=== PATIENT | female | born 1940 | race Caucasian/White ===

== ENCOUNTER 2022-05-12 12:51 | Inpatient (IN) ==
[2022-05-12] MEDS ORDERED: Ipratropium/Albuterol Neb 3 ML IH ONE (13:15)
[2022-05-12] MEDS ORDERED: methylPREDNISolone 125 MG/2 ML VIAL IVP ONE (13:15)
[2022-05-12 13:26] LABS: Hematocrit 37.1 % (35.3-44.9); Hemoglobin 11.6 g/dL (11.5-15.4); Mean Corpuscular HGB Conc 31.3 g/dL (31.6-35.5); Mean Corpuscular Hemoglobin 30.4 pg (28.0-33.3); Mean Corpuscular Volume 97.1 fL (83.0-100.0); Platelet Count 222 K/mcL (140-400); Red Blood Count 3.82 M/mcL (3.82-4.97); Red Cell Distribution Width 12.6 % (11.5-14.5); White Blood Count 9.1 K/mcL (4.3-11.1)
[2022-05-12 13:27] LABS: Basophils % 0.3 %; Eosinophils # 0.1 K/mcL (0.0-0.6); Eosinophils % 1.1 %; Immature Granulocytes % 0.4 % (0-4); Lymphocytes # 1.2 K/mcL (0.6-4.6); Lymphocytes % 12.7 %; Monocytes # 0.8 K/mcL (0.0-1.3); Monocytes % 8.5 %
[2022-05-12 13:47] LABS: BUN/Creatinine Ratio 31 (6-26); Blood Urea Nitrogen 22 mg/dL (8-23); Calcium 9.7 mg/dL (8.6-10.3); Chloride 90 mEq/L (98-107); Glucose 170 mg/dL (70-105); Osmolality,Calculated 301 (280-300); Potassium 3.3 mEq/L (3.5-5.1); Sodium 142 mEq/L (136-145); Troponin I < 0.03 ng/mL (< 0.04); eGFR For African Americans > 60 (> 60); eGFR For Non-African Americans > 60 (> 60)
[2022-05-12 13:51] LABS: Carbon Dioxide > 45 mEq/L (23-29)
[2022-05-12 14:50] LABS: Influenza A PCR Negative (Negative); Influenza B PCR Negative (Negative); Resp. Syncytial Virus PCR Negative (Negative); SARS-CoV-2 by PCR (In House) Negative (Negative)
[2022-05-12 15:10] LABS: VBG HCO3 46 mEq/L (21-27); VBG PCO2 90 mmHg (41-51); VBG PH 7.32 pH Units (7.32-7.42); VBG PO2 164 mmHg (25-50)
[2022-05-12] MEDS ORDERED: Ondansetron 4 MG/2 ML VIAL IVP PRN (15:25)
[2022-05-12] MEDS ORDERED: Naloxone 0.4 MG/ML INJ IVP PRN (15:25)
[2022-05-12] MEDS ORDERED: Acetaminophen 325 MG TABLET PO PRN (15:25)
[2022-05-12] MEDS ORDERED: Ipratropium/Albuterol Neb 3 ML IH PRN (15:27)
[2022-05-12 15:56] LABS: ABG Base Excess 16 mEq/L (-2 to 3); ABG HCO3 44 mEq/L (21-27); ABG Oxygen Saturation 90 % (95-98); ABG PCO2 73 mmHg (35-45); ABG PH 7.39 pH Units (7.32-7.45); ABG PO2 62 mmHg (85-104); ABG TCO2 46 mEq/L (20-26); Blood Gas Modality NIV
[2022-05-12] MEDS: Azithromycin 500 MG in 0.9 % Sodium Chloride 250 ML IVPB SCH (16:29)
[2022-05-12] MEDS: methylPREDNISolone 125 MG/2 ML VIAL IVP SCH (17:39)
[2022-05-12 19:49] LABS: Prothrombin Time 11.2 Seconds (9.4-12.1)
[2022-05-13 00:04] LABS: Bilirubin,Urine Negative (Negative); Blood,Urine Negative (Negative); Clarity,Urine Clear (Clear); Color,Urine Yellow (Yellow); Glucose,Urine (UA) 200 mg/dL (Normal); Hyaline Casts,Urine Moderate per lpf (None Seen); Ketones,Urine Trace mg/dL (Negative); Leukocyte Esterase,Urine Trace (Negative); Mucus,Urine Few per lpf (None-Few); Nitrite,Urine Negative (Negative); PH,Urine 6.5 pH Units (5.0-8.0); Protein,Urine 30 mg/dL (Neg-Trace); RBC,Urine 0-3 per hpf (0-3); Specific Gravity,Urine 1.025 (1.010-1.025); Squamous Epithelial Cell,Urine Few per hpf (None-Few); Urobilinogen,Urine Normal (Normal)
[2022-05-13 00:11] LABS: Amphetamine Screen,Urine Negative ng/mL (Cutoff=1000); Barbiturate Screen,Urine Negative ng/mL (Cutoff=200); Benzodiazepines Screen,Urine Negative ng/mL (Cutoff=200); Cannabinoid Screen,Urine Negative ng/mL (Cutoff = 50); Cocaine Screen,Urine Negative ng/mL (Cutoff= 300); Opiate Screen,Urine Negative ng/mL (Cutoff=300); Phencyclidine Screen,Urine Negative ng/mL (Cutoff=25)
[2022-05-13 02:15] LABS: Basophils % 0.2 %; Hematocrit 34.2 % (35.3-44.9); Hemoglobin 10.7 g/dL (11.5-15.4); Immature Granulocytes % 0.8 % (0-4); Lymphocytes # 0.5 K/mcL (0.6-4.6); Lymphocytes % 8.2 %; Mean Corpuscular HGB Conc 31.3 g/dL (31.6-35.5); Mean Corpuscular Volume 95.8 fL (83.0-100.0); Mean Platelet Volume 11.3 fL (9.4-12.4); Monocytes # 0.1 K/mcL (0.0-1.3); Neutrophils # 5.6 K/mcL (1.6-8.9); Platelet Count 208 K/mcL (140-400); Red Blood Count 3.57 M/mcL (3.82-4.97); Red Cell Distribution Width 12.6 % (11.5-14.5); Segmented Neutrophils % 89.8 %; White Blood Count 6.3 K/mcL (4.3-11.1)
[2022-05-13 03:02] LABS: Alanine Aminotransferase 8 Units/L (7-52); Albumin 3.4 g/dL (3.5-5.7); Albumin/Globulin Ratio 1.3 (1.1-2.2); Alkaline Phosphatase 38 Units/L (34-104); Aspartate Amino Transferase 14 Units/L (13-39); BUN/Creatinine Ratio 43 (6-26); Bilirubin,Indirect 0.3 mg/dL (0.0-1.0); Bilirubin,Total 0.3 mg/dL (0.3-1.0); Blood Urea Nitrogen 28 mg/dL (8-23); Calcium 9.4 mg/dL (8.6-10.3); Carbon Dioxide 41 mEq/L (23-29); Chloride 97 mEq/L (98-107); Globulin 2.6 g/dL (2.4-3.5); Glucose 139 mg/dL (70-105); Magnesium 1.6 mg/dL (1.6-2.6); Osmolality,Calculated 304 (280-300); Phosphorous 3.1 mg/dL (2.7-4.5); Sodium 143 mEq/L (136-145); Thyroid Stimulating Hormone 0.274 mcIU/mL (0.340-5.600); eGFR For African Americans > 60 (> 60); eGFR For Non-African Americans > 60 (> 60)
[2022-05-13] MEDS: Levothyroxine 25 MCG TABLET PO SCH (06:06)
[2022-05-13] MEDS: methylPREDNISolone 125 MG/2 ML VIAL IVP SCH ×2 (06:06→17:38)
[2022-05-13] MEDS: PARoxetine 20 MG TABLET PO SCH (09:35)
[2022-05-13] MEDS: Azithromycin 500 MG in 0.9 % Sodium Chloride 250 ML IVPB SCH (09:35)
[2022-05-13] MEDS: Loratadine 10 MG TABLET PO SCH (09:35)
[2022-05-13] MEDS: *HR* Enoxaparin 30 MG/0.3 ML SYRINGE SQ SCH (09:36)
[2022-05-13] MEDS: Tiotropium 10 INH DOSE IH SCH (10:34)
[2022-05-13] MEDS: Melatonin 3 MG TABLET PO SCH (21:00)
[2022-05-14] MEDS: methylPREDNISolone 125 MG/2 ML VIAL IVP SCH (05:36)
[2022-05-14] MEDS: Levothyroxine 25 MCG TABLET PO SCH (05:36)
[2022-05-14] MEDS: Tiotropium 10 INH DOSE IH SCH (07:13)
[2022-05-14] MEDS: Loratadine 10 MG TABLET PO SCH (08:46)
[2022-05-14] MEDS: Azithromycin 500 MG in 0.9 % Sodium Chloride 250 ML IVPB SCH (08:47)
[2022-05-14] MEDS: PARoxetine 20 MG TABLET PO SCH (08:47)
[2022-05-14] MEDS: *HR* Enoxaparin 30 MG/0.3 ML SYRINGE SQ SCH (08:47)
[2022-05-14 10:05] LABS: BUN/Creatinine Ratio 45 (6-26); Blood Urea Nitrogen 37 mg/dL (8-23); Carbon Dioxide 40 mEq/L (23-29); Chloride 92 mEq/L (98-107); Glucose 298 mg/dL (70-105); Osmolality,Calculated 306 (280-300); Potassium 4.6 mEq/L (3.5-5.1); Sodium 138 mEq/L (136-145); eGFR For African Americans > 60 (> 60); eGFR For Non-African Americans > 60 (> 60)
[2022-05-14] MEDS ORDERED: predniSONE 20 MG TABLET PO SCH (12:00)
[2022-05-14 12:48] LABS: Estimated Average Glucose 123 mg/dl; Hemoglobin A1C 5.9 %
[2022-05-14] MEDS: Melatonin 3 MG TABLET PO SCH (20:38)
[2022-05-15 03:36] LABS: BUN/Creatinine Ratio 47 (6-26); Blood Urea Nitrogen 34 mg/dL (8-23); Calcium 8.9 mg/dL (8.6-10.3); Carbon Dioxide 41 mEq/L (23-29); Chloride 98 mEq/L (98-107); Glucose 78 mg/dL (70-105); Osmolality,Calculated 298 (280-300); Potassium 4.3 mEq/L (3.5-5.1); Sodium 141 mEq/L (136-145); eGFR For African Americans > 60 (> 60); eGFR For Non-African Americans > 60 (> 60)
[2022-05-15] MEDS: Levothyroxine 25 MCG TABLET PO SCH (06:34)
[2022-05-15] MEDS: Tiotropium 10 INH DOSE IH SCH (07:43)
[2022-05-15] MEDS: Azithromycin 250 MG TABLET PO SCH (08:38)
[2022-05-15] MEDS: PARoxetine 20 MG TABLET PO SCH (08:39)
[2022-05-15] MEDS: Loratadine 10 MG TABLET PO SCH (08:39)
[2022-05-15] MEDS: predniSONE 20 MG TABLET PO SCH ×2 (08:39→09:01)
[2022-05-15] MEDS: *HR* Enoxaparin 30 MG/0.3 ML SYRINGE SQ SCH (08:43)
[2022-05-15] MEDS: Melatonin 3 MG TABLET PO SCH (20:12)
[2022-05-16] MEDS: Levothyroxine 25 MCG TABLET PO SCH (05:57)
[2022-05-16] MEDS: Azithromycin 250 MG TABLET PO SCH (08:51)
[2022-05-16] MEDS: PARoxetine 20 MG TABLET PO SCH (08:51)
[2022-05-16] MEDS: predniSONE 20 MG TABLET PO SCH (08:51)
[2022-05-16] MEDS: Loratadine 10 MG TABLET PO SCH (08:51)
[2022-05-16] MEDS: *HR* Enoxaparin 30 MG/0.3 ML SYRINGE SQ SCH (08:52)
[2022-05-16] MEDS: Tiotropium 10 INH DOSE IH SCH (11:07)
[2022-05-16] MEDS: Melatonin 3 MG TABLET PO SCH (21:41)
[2022-05-17] MEDS: Levothyroxine 25 MCG TABLET PO SCH (05:38)
[2022-05-17] MEDS: Tiotropium 10 INH DOSE IH SCH (08:03)
[2022-05-17 08:21] LABS: Hematocrit 38.5 % (35.3-44.9); Hemoglobin 11.4 g/dL (11.5-15.4); Mean Corpuscular HGB Conc 29.6 g/dL (31.6-35.5); Mean Corpuscular Hemoglobin 30.4 pg (28.0-33.3); Platelet Count 251 K/mcL (140-400); Red Blood Count 3.75 M/mcL (3.82-4.97); Red Cell Distribution Width 12.9 % (11.5-14.5); White Blood Count 9.3 K/mcL (4.3-11.1)
[2022-05-17 08:23] LABS: Mean Corpuscular Volume 102.7 fL (83.0-100.0)
[2022-05-17 08:50] LABS: BUN/Creatinine Ratio 33 (6-26); Blood Urea Nitrogen 24 mg/dL (8-23); Carbon Dioxide 41 mEq/L (23-29); Chloride 92 mEq/L (98-107); Glucose 46 mg/dL (70-105); Osmolality,Calculated 299 (280-300); Potassium 3.7 mEq/L (3.5-5.1); Sodium 144 mEq/L (136-145); eGFR For African Americans > 60 (> 60); eGFR For Non-African Americans > 60 (> 60)
[2022-05-17] MEDS: Loratadine 10 MG TABLET PO SCH (09:07)
[2022-05-17] MEDS: predniSONE 20 MG TABLET PO SCH (09:07)
[2022-05-17] MEDS: PARoxetine 20 MG TABLET PO SCH (09:07)
[2022-05-17] MEDS: Azithromycin 250 MG TABLET PO SCH (09:08)
[2022-05-17] MEDS: *HR* Enoxaparin 30 MG/0.3 ML SYRINGE SQ SCH (09:09)
[2022-05-17] MEDS: Melatonin 3 MG TABLET PO SCH (21:05)
[2022-05-18 01:56] LABS: Hematocrit 33.2 % (35.3-44.9); Hemoglobin 10.5 g/dL (11.5-15.4); Mean Corpuscular HGB Conc 31.6 g/dL (31.6-35.5); Mean Corpuscular Hemoglobin 29.9 pg (28.0-33.3); Platelet Count 207 K/mcL (140-400); Red Blood Count 3.51 M/mcL (3.82-4.97); Red Cell Distribution Width 12.8 % (11.5-14.5); White Blood Count 10.5 K/mcL (4.3-11.1)
[2022-05-18 02:07] LABS: Mean Corpuscular Volume 94.6 fL (83.0-100.0)
[2022-05-18 02:23] LABS: BUN/Creatinine Ratio 38 (6-26); Blood Urea Nitrogen 26 mg/dL (8-23); Calcium 8.5 mg/dL (8.6-10.3); Carbon Dioxide 40 mEq/L (23-29); Chloride 97 mEq/L (98-107); Glucose 90 mg/dL (70-105); Osmolality,Calculated 294 (280-300); Sodium 140 mEq/L (136-145); eGFR For African Americans > 60 (> 60); eGFR For Non-African Americans > 60 (> 60)
[2022-05-18] MEDS: Levothyroxine 25 MCG TABLET PO SCH (06:22)
[2022-05-18] MEDS: Tiotropium 10 INH DOSE IH SCH (07:41)
[2022-05-18] MEDS: predniSONE 20 MG TABLET PO SCH (08:37)
[2022-05-18] MEDS: *HR* Enoxaparin 30 MG/0.3 ML SYRINGE SQ SCH (08:38)
[2022-05-18] MEDS: PARoxetine 20 MG TABLET PO SCH (08:38)
[2022-05-18] MEDS: Loratadine 10 MG TABLET PO SCH (08:38)
[2022-05-18] MEDS: Melatonin 3 MG TABLET PO SCH (20:36)
[2022-05-19 01:38] LABS: Hematocrit 32.3 % (35.3-44.9); Hemoglobin 10.3 g/dL (11.5-15.4); Mean Corpuscular HGB Conc 31.9 g/dL (31.6-35.5); Mean Corpuscular Hemoglobin 30.6 pg (28.0-33.3); Mean Corpuscular Volume 95.8 fL (83.0-100.0); Mean Platelet Volume 11.4 fL (9.4-12.4); Platelet Count 219 K/mcL (140-400); Red Blood Count 3.37 M/mcL (3.82-4.97); Red Cell Distribution Width 12.7 % (11.5-14.5); White Blood Count 9.8 K/mcL (4.3-11.1)
[2022-05-19 02:01] LABS: BUN/Creatinine Ratio 41 (6-26); Blood Urea Nitrogen 28 mg/dL (8-23); Calcium 8.8 mg/dL (8.6-10.3); Carbon Dioxide 44 mEq/L (23-29); Chloride 93 mEq/L (98-107); Glucose 94 mg/dL (70-105); Osmolality,Calculated 293 (280-300); Potassium 4.6 mEq/L (3.5-5.1); Sodium 139 mEq/L (136-145); eGFR For African Americans > 60 (> 60); eGFR For Non-African Americans > 60 (> 60)
[2022-05-19] MEDS: Levothyroxine 25 MCG TABLET PO SCH (06:16)
[2022-05-19] MEDS: Loratadine 10 MG TABLET PO SCH (07:42)
[2022-05-19] MEDS: predniSONE 20 MG TABLET PO SCH (07:42)
[2022-05-19] MEDS: PARoxetine 20 MG TABLET PO SCH (07:42)
[2022-05-19] MEDS: *HR* Enoxaparin 30 MG/0.3 ML SYRINGE SQ SCH (07:42)
[2022-05-19] MEDS: Tiotropium 10 INH DOSE IH SCH (09:57)
[2022-05-19] MEDS: Melatonin 3 MG TABLET PO SCH (20:53)
[2022-05-20] MEDS: Levothyroxine 25 MCG TABLET PO SCH (06:11)
[2022-05-20] MEDS: *HR* Enoxaparin 30 MG/0.3 ML SYRINGE SQ SCH (08:27)
[2022-05-20] MEDS: PARoxetine 20 MG TABLET PO SCH (08:28)
[2022-05-20] MEDS: Loratadine 10 MG TABLET PO SCH (08:28)
[2022-05-20] MEDS: predniSONE 20 MG TABLET PO SCH (08:28)
[2022-05-20] MEDS: Tiotropium 10 INH DOSE IH SCH (10:57)
[2022-05-20] MEDS: Melatonin 3 MG TABLET PO SCH (20:31)
[2022-05-21] MEDS: Levothyroxine 25 MCG TABLET PO SCH (05:35)
[2022-05-21] MEDS: *HR* Enoxaparin 40 MG/0.4 ML SYRINGE SQ SCH (05:35)
[2022-05-21] MEDS: predniSONE 20 MG TABLET PO SCH (07:33)
[2022-05-21] MEDS: PARoxetine 20 MG TABLET PO SCH (07:35)
[2022-05-21] MEDS: Loratadine 10 MG TABLET PO SCH (07:36)
[2022-05-21] MEDS: Tiotropium 10 INH DOSE IH SCH (09:09)
[2022-05-21] MEDS: Melatonin 3 MG TABLET PO SCH (20:02)
[2022-05-22] MEDS: Levothyroxine 25 MCG TABLET PO SCH (05:10)
[2022-05-22] MEDS: *HR* Enoxaparin 40 MG/0.4 ML SYRINGE SQ SCH (05:10)
[2022-05-22] MEDS: Tiotropium 10 INH DOSE IH SCH (07:32)
[2022-05-22] MEDS: PARoxetine 20 MG TABLET PO SCH (08:27)
[2022-05-22] MEDS: predniSONE 20 MG TABLET PO SCH (08:28)
[2022-05-22] MEDS: Loratadine 10 MG TABLET PO SCH (08:28)
[2022-05-22] MEDS: Melatonin 3 MG TABLET PO SCH (20:42)
[2022-05-23] MEDS: Levothyroxine 25 MCG TABLET PO SCH (05:42)
[2022-05-23] MEDS: *HR* Enoxaparin 40 MG/0.4 ML SYRINGE SQ SCH (05:43)
[2022-05-23] MEDS: predniSONE 20 MG TABLET PO SCH (08:02)
[2022-05-23] MEDS: PARoxetine 20 MG TABLET PO SCH (08:02)
[2022-05-23] MEDS: Tiotropium 10 INH DOSE IH SCH (08:03)
[2022-05-23] MEDS: Loratadine 10 MG TABLET PO SCH (08:03)
[2022-05-23] MEDS: Melatonin 3 MG TABLET PO SCH (19:34)
[2022-05-24] MEDS: Levothyroxine 25 MCG TABLET PO SCH (05:21)
[2022-05-24] MEDS: *HR* Enoxaparin 40 MG/0.4 ML SYRINGE SQ SCH (05:21)
[2022-05-24] MEDS: Tiotropium 10 INH DOSE IH SCH (07:35)
[2022-05-24] MEDS: predniSONE 20 MG TABLET PO SCH (08:49)
[2022-05-24] MEDS: PARoxetine 20 MG TABLET PO SCH (08:49)
[2022-05-24] MEDS: Loratadine 10 MG TABLET PO SCH (08:50)
[2022-05-24] MEDS: Melatonin 3 MG TABLET PO SCH (19:52)
[2022-05-25] MEDS: *HR* Enoxaparin 40 MG/0.4 ML SYRINGE SQ SCH (05:19)
[2022-05-25] MEDS: Levothyroxine 25 MCG TABLET PO SCH (05:19)
[2022-05-25] MEDS: predniSONE 20 MG TABLET PO SCH (08:04)
[2022-05-25] MEDS: PARoxetine 20 MG TABLET PO SCH (08:04)
[2022-05-25] MEDS: Loratadine 10 MG TABLET PO SCH (08:04)
[2022-05-25] MEDS: Tiotropium 10 INH DOSE IH SCH (09:41)
[2022-05-25] MEDS: Melatonin 3 MG TABLET PO SCH (21:34)
[2022-05-26] MEDS: *HR* Enoxaparin 40 MG/0.4 ML SYRINGE SQ SCH (05:45)
[2022-05-26] MEDS: Levothyroxine 25 MCG TABLET PO SCH (05:45)
[2022-05-26] MEDS: Loratadine 10 MG TABLET PO SCH (09:06)
[2022-05-26] MEDS: predniSONE 20 MG TABLET PO SCH (09:06)
[2022-05-26] MEDS: PARoxetine 20 MG TABLET PO SCH (09:06)
[2022-05-26] MEDS: Tiotropium 10 INH DOSE IH SCH (09:59)
[2022-05-26] MEDS: Melatonin 3 MG TABLET PO SCH (20:35)
[2022-05-27] MEDS: *HR* Enoxaparin 40 MG/0.4 ML SYRINGE SQ SCH (06:02)
[2022-05-27] MEDS: Levothyroxine 25 MCG TABLET PO SCH (06:02)
[2022-05-27] MEDS: Tiotropium 10 INH DOSE IH SCH (07:31)
[2022-05-27] MEDS: PARoxetine 20 MG TABLET PO SCH (09:12)
[2022-05-27] MEDS: Loratadine 10 MG TABLET PO SCH (09:12)
[2022-05-27] MEDS: Melatonin 3 MG TABLET PO SCH (21:49)
[2022-05-28] MEDS: *HR* Enoxaparin 40 MG/0.4 ML SYRINGE SQ SCH (05:42)
[2022-05-28] MEDS: Levothyroxine 25 MCG TABLET PO SCH (05:42)
[2022-05-28] MEDS: Tiotropium 10 INH DOSE IH SCH (07:35)
[2022-05-28] MEDS: Loratadine 10 MG TABLET PO SCH (08:34)
[2022-05-28] MEDS: PARoxetine 20 MG TABLET PO SCH (08:34)
[2022-05-28] MEDS: Melatonin 3 MG TABLET PO SCH (20:18)
[2022-05-29] MEDS: Levothyroxine 25 MCG TABLET PO SCH (06:17)
[2022-05-29] MEDS: *HR* Enoxaparin 40 MG/0.4 ML SYRINGE SQ SCH (06:18)
[2022-05-29] MEDS: Tiotropium 10 INH DOSE IH SCH (07:50)
[2022-05-29] MEDS: Loratadine 10 MG TABLET PO SCH (08:11)
[2022-05-29] MEDS: PARoxetine 20 MG TABLET PO SCH (08:11)
[2022-05-29] MEDS: Melatonin 3 MG TABLET PO SCH (20:20)
[2022-05-30] MEDS: *HR* Enoxaparin 40 MG/0.4 ML SYRINGE SQ SCH (05:53)
[2022-05-30] MEDS: Levothyroxine 25 MCG TABLET PO SCH (05:53)
[2022-05-30] MEDS: Tiotropium 10 INH DOSE IH SCH (07:48)
[2022-05-30] MEDS: PARoxetine 20 MG TABLET PO SCH (08:59)
[2022-05-30] MEDS: Loratadine 10 MG TABLET PO SCH (09:00)
[2022-05-30] MEDS: Melatonin 3 MG TABLET PO SCH (20:35)
[2022-05-31] MEDS: Levothyroxine 25 MCG TABLET PO SCH (05:42)
[2022-05-31] MEDS: *HR* Enoxaparin 40 MG/0.4 ML SYRINGE SQ SCH (05:42)
[2022-05-31] MEDS: Tiotropium 10 INH DOSE IH SCH (07:28)
[2022-05-31] MEDS: Loratadine 10 MG TABLET PO SCH (09:06)
[2022-05-31] MEDS: PARoxetine 20 MG TABLET PO SCH (09:06)
[2022-05-31] MEDS: Melatonin 3 MG TABLET PO SCH (21:31)
[2022-06-01] MEDS: Levothyroxine 25 MCG TABLET PO SCH (06:05)
[2022-06-01] MEDS: *HR* Enoxaparin 40 MG/0.4 ML SYRINGE SQ SCH (06:05)
[2022-06-01] MEDS: Tiotropium 10 INH DOSE IH SCH (08:05)
[2022-06-01] MEDS: Loratadine 10 MG TABLET PO SCH (08:41)
[2022-06-01] MEDS: PARoxetine 20 MG TABLET PO SCH (08:41)
[2022-06-01] MEDS: Melatonin 3 MG TABLET PO SCH (21:41)
[2022-06-02] MEDS: *HR* Enoxaparin 40 MG/0.4 ML SYRINGE SQ SCH (05:44)
[2022-06-02] MEDS: Levothyroxine 25 MCG TABLET PO SCH (05:45)
[2022-06-02] MEDS: Tiotropium 10 INH DOSE IH SCH (07:45)
[2022-06-02] MEDS: Loratadine 10 MG TABLET PO SCH (08:23)
[2022-06-02] MEDS: PARoxetine 20 MG TABLET PO SCH (08:23)
[2022-06-02] MEDS: Melatonin 3 MG TABLET PO SCH (20:25)
[2022-06-03] MEDS: *HR* Enoxaparin 40 MG/0.4 ML SYRINGE SQ SCH (05:41)
[2022-06-03] MEDS: Levothyroxine 25 MCG TABLET PO SCH (05:41)
[2022-06-03] MEDS: Tiotropium 10 INH DOSE IH SCH (07:49)
[2022-06-03] MEDS: Loratadine 10 MG TABLET PO SCH (09:08)
[2022-06-03] MEDS: PARoxetine 20 MG TABLET PO SCH (09:09)
[2022-06-03] MEDS: Melatonin 3 MG TABLET PO SCH (19:58)
[2022-06-04] MEDS: Levothyroxine 25 MCG TABLET PO SCH (05:57)
[2022-06-04] MEDS: *HR* Enoxaparin 40 MG/0.4 ML SYRINGE SQ SCH (05:58)
[2022-06-04] MEDS: Tiotropium 10 INH DOSE IH SCH (07:14)
[2022-06-04] MEDS: PARoxetine 20 MG TABLET PO SCH (08:31)
[2022-06-04] MEDS: Loratadine 10 MG TABLET PO SCH (08:32)
[2022-06-04] MEDS: Melatonin 3 MG TABLET PO SCH (20:40)
[2022-06-05] MEDS: *HR* Enoxaparin 40 MG/0.4 ML SYRINGE SQ SCH (05:28)
[2022-06-05] MEDS: Levothyroxine 25 MCG TABLET PO SCH (05:28)
[2022-06-05] MEDS: Tiotropium 10 INH DOSE IH SCH (07:33)
[2022-06-05] MEDS: PARoxetine 20 MG TABLET PO SCH (07:39)
[2022-06-05] MEDS: Loratadine 10 MG TABLET PO SCH (07:40)
[2022-06-05] MEDS: Melatonin 3 MG TABLET PO SCH (21:53)
[2022-06-06] MEDS: Levothyroxine 25 MCG TABLET PO SCH (06:17)
[2022-06-06] MEDS: *HR* Enoxaparin 40 MG/0.4 ML SYRINGE SQ SCH (06:17)
[2022-06-06] MEDS: Tiotropium 10 INH DOSE IH SCH (07:32)
[2022-06-06] MEDS: PARoxetine 20 MG TABLET PO SCH (09:06)
[2022-06-06] MEDS: Loratadine 10 MG TABLET PO SCH (09:07)
[2022-06-06] MEDS: Melatonin 3 MG TABLET PO SCH (20:39)
[2022-06-07] MEDS: Levothyroxine 25 MCG TABLET PO SCH (05:57)
[2022-06-07] MEDS: *HR* Enoxaparin 40 MG/0.4 ML SYRINGE SQ SCH (05:58)
[2022-06-07] MEDS: Tiotropium 10 INH DOSE IH SCH (07:33)
[2022-06-07] MEDS: PARoxetine 20 MG TABLET PO SCH (09:25)
[2022-06-07] MEDS: Loratadine 10 MG TABLET PO SCH (09:25)
[2022-06-07] MEDS: Melatonin 3 MG TABLET PO SCH (20:57)
[2022-06-08] MEDS: *HR* Enoxaparin 40 MG/0.4 ML SYRINGE SQ SCH (05:33)
[2022-06-08] MEDS: Levothyroxine 25 MCG TABLET PO SCH (05:33)
[2022-06-08] MEDS: Tiotropium 10 INH DOSE IH SCH (08:26)
[2022-06-08] MEDS: Loratadine 10 MG TABLET PO SCH (08:47)
[2022-06-08] MEDS: PARoxetine 20 MG TABLET PO SCH (08:47)
[2022-06-08] MEDS: Budesonide/Formoterol 80/4.5 1 PUFF INH IH SCH ×2 (13:14→22:32)
[2022-06-08] MEDS: Melatonin 3 MG TABLET PO SCH (21:29)
[2022-06-09 02:21] LABS: Basophils % 0.5 %; Eosinophils # 0.2 K/mcL (0.0-0.6); Eosinophils % 4.1 %; Hematocrit 30.7 % (35.3-44.9); Hemoglobin 9.6 g/dL (11.5-15.4); Immature Granulocytes % 1.4 % (0-4); Lymphocytes # 2.1 K/mcL (0.6-4.6); Lymphocytes % 37.2 %; Mean Corpuscular HGB Conc 31.3 g/dL (31.6-35.5); Mean Corpuscular Hemoglobin 30.6 pg (28.0-33.3); Mean Corpuscular Volume 97.8 fL (83.0-100.0); Monocytes # 0.8 K/mcL (0.0-1.3); Monocytes % 13.3 %; Neutrophils # 2.5 K/mcL (1.6-8.9); Platelet Count 168 K/mcL (140-400); Red Blood Count 3.14 M/mcL (3.82-4.97); Red Cell Distribution Width 12.9 % (11.5-14.5); Segmented Neutrophils % 43.5 %; White Blood Count 5.6 K/mcL (4.3-11.1)
[2022-06-09] MEDS: *HR* Enoxaparin 40 MG/0.4 ML SYRINGE SQ SCH (05:57)
[2022-06-09] MEDS: Levothyroxine 25 MCG TABLET PO SCH (05:57)
[2022-06-09] MEDS: PARoxetine 20 MG TABLET PO SCH (07:36)
[2022-06-09] MEDS: Loratadine 10 MG TABLET PO SCH (07:36)
[2022-06-09] MEDS: Tiotropium 10 INH DOSE IH SCH (07:51)
[2022-06-09] MEDS: Budesonide/Formoterol 80/4.5 1 PUFF INH IH SCH ×2 (07:52→20:11)
[2022-06-09] MEDS: Melatonin 3 MG TABLET PO SCH (22:05)
[2022-06-10] MEDS: *HR* Enoxaparin 40 MG/0.4 ML SYRINGE SQ SCH (06:08)
[2022-06-10] MEDS: Levothyroxine 25 MCG TABLET PO SCH (06:08)
[2022-06-10] MEDS: PARoxetine 20 MG TABLET PO SCH (07:47)
[2022-06-10] MEDS: Loratadine 10 MG TABLET PO SCH (07:47)
[2022-06-10] MEDS: Tiotropium 10 INH DOSE IH SCH (09:44)
[2022-06-10] MEDS: Budesonide/Formoterol 80/4.5 1 PUFF INH IH SCH ×2 (09:46→20:13)
[2022-06-10] MEDS: Melatonin 3 MG TABLET PO SCH (21:49)
[2022-06-11] MEDS: Levothyroxine 25 MCG TABLET PO SCH (06:08)
[2022-06-11] MEDS: *HR* Enoxaparin 40 MG/0.4 ML SYRINGE SQ SCH (06:08)
[2022-06-11] MEDS: PARoxetine 20 MG TABLET PO SCH (07:24)
[2022-06-11] MEDS: Loratadine 10 MG TABLET PO SCH (07:24)
[2022-06-11] MEDS: Budesonide/Formoterol 80/4.5 1 PUFF INH IH SCH ×2 (07:28→20:27)
[2022-06-11] MEDS: Tiotropium 10 INH DOSE IH SCH (07:28)
[2022-06-11] MEDS: Melatonin 3 MG TABLET PO SCH (21:38)
[2022-06-12] MEDS: Levothyroxine 25 MCG TABLET PO SCH (05:37)
[2022-06-12] MEDS: *HR* Enoxaparin 40 MG/0.4 ML SYRINGE SQ SCH (05:37)
[2022-06-12] MEDS: PARoxetine 20 MG TABLET PO SCH (07:24)
[2022-06-12] MEDS: Loratadine 10 MG TABLET PO SCH (07:24)
[2022-06-12] MEDS: Tiotropium 10 INH DOSE IH SCH (10:39)
[2022-06-12] MEDS: Budesonide/Formoterol 80/4.5 1 PUFF INH IH SCH ×2 (10:40→20:11)
[2022-06-12] MEDS: Melatonin 3 MG TABLET PO SCH (21:00)
[2022-06-13] MEDS: *HR* Enoxaparin 40 MG/0.4 ML SYRINGE SQ SCH (06:14)
[2022-06-13] MEDS: Levothyroxine 25 MCG TABLET PO SCH (06:14)
[2022-06-13] MEDS: PARoxetine 20 MG TABLET PO SCH (08:25)
[2022-06-13] MEDS: Loratadine 10 MG TABLET PO SCH (08:26)
[2022-06-13] MEDS: Budesonide/Formoterol 80/4.5 1 PUFF INH IH SCH ×2 (10:13→21:03)
[2022-06-13] MEDS: Tiotropium 10 INH DOSE IH SCH (10:15)
[2022-06-13] MEDS ORDERED: Moderna Covid-19 Vaccine 100MCG/0.5mL IM ONE (10:51)
[2022-06-13 11:22] LABS: Influenza A PCR Negative (Negative); Influenza B PCR Negative (Negative); Resp. Syncytial Virus PCR Negative (Negative); SARS-CoV-2 by PCR (In House) Negative (Negative)
[2022-06-13] MEDS: Melatonin 3 MG TABLET PO SCH (22:25)
[2022-06-14] MEDS: *HR* Enoxaparin 40 MG/0.4 ML SYRINGE SQ SCH ×2 (05:27→05:37)
[2022-06-14] MEDS: Levothyroxine 25 MCG TABLET PO SCH (05:27)
[2022-06-14 06:49] VITALS: BP 147/63; PULSE 90; TEMP 98.3; O2SAT 92
[2022-06-14] MEDS: Budesonide/Formoterol 80/4.5 1 PUFF INH IH SCH (07:48)
[2022-06-14] MEDS: Tiotropium 10 INH DOSE IH SCH (07:48)
[2022-06-14] MEDS: PARoxetine 20 MG TABLET PO SCH (09:03)
[2022-06-14] MEDS: Loratadine 10 MG TABLET PO SCH (09:03)
== END 2022-06-14 21:35 | DRG 189 ==
LOC: 3BNU 12:51 → EMEROOARM 12:51 → SUATTDRO 15:29 → 3BNU 16:00 → SUATTDRO 05-13 18:35 → UNDODISIN 06-13 15:27
PROVIDERS: ADMIT Student in an Organized Health Care Education/Training Program; ATTEND Internal Medicine